=== PATIENT | male | born 1995 | race Caucasian/White ===

== ENCOUNTER 2017-06-08 17:29 | Emergency (ER) | payer OTHER ==
[~2017-06-08] VITALS: Ht 177.8 cm; Wt 86.4 kg
[2017-06-08 17:31] VITALS: TEMP 98.2
[2017-06-08 19:29] VITALS: BP 124/67; PULSE 60
== END 2017-06-08 19:30 | disposition home or self-care (01) ==
LOC: COL.ER 17:29
DX: R07.9 Chest pain, unspecified (principal); F41.9 Anxiety disorder, unspecified; F17.210 Nicotine dependence, cigarettes, uncomplicated